=== PATIENT | male | born 1990 | race Caucasian/White ===

== ENCOUNTER 2022-06-05 14:25 | Outpatient (CLI) | payer BC | END 2022-06-05 14:26 | disposition home or self-care (01) | LOC: BICULT 14:25 | PROVIDERS: ATTEND Internal Medicine Nephrology | DX: I13.10 Hypertensive heart and chronic kidney disease without heart failure, with stage 1 through stage 4 chronic kidney disease, or unspecified chronic kidney disease (principal); N18.9 Chronic kidney disease, unspecified; J45.909 Unspecified asthma, uncomplicated; M19.90 Unspecified osteoarthritis, unspecified site; E03.9 Hypothyroidism, unspecified; E29.1 Testicular hypofunction; D45 Polycythemia vera; K21.9 Gastro-esophageal reflux disease without esophagitis; N20.0 Calculus of kidney; N28.1 Cyst of kidney, acquired | CPT/HCPCS: 76770; 93975 ==

== ENCOUNTER 2022-11-05 18:00 | Outpatient (CLI) | payer BC | END 2022-11-05 18:01 | disposition home or self-care (01) | LOC: SLEEPLAB 18:00 | PROVIDERS: ATTEND Internal Medicine | DX: G47.33 Obstructive sleep apnea (adult) (pediatric) (principal); F41.9 Anxiety disorder, unspecified; I10 Essential (primary) hypertension | CPT/HCPCS: 95800 ==